=== PATIENT | female | born 1995 | race African-American/Black ===

== ENCOUNTER 2018-08-13 21:22 | Emergency (ER) | payer SELFPAY ==
[2018-08-14] MEDS ORDERED: Tetracaine 0.5% OPTH.SOL 4 ML* 1 DROP BTL ONE (01:24)
[2018-08-14] MEDS ORDERED: Fluorescein Sod TOPICAL 0.6* 0.6 MG TEST OPHTHALMIC ONE (01:26)
--- NOTE | 2018-08-14 01:29 | ED ---
Throat Pain/Nasal Congestion - HPI Summary HPI Summary: Patient is a 23 y/o F w/ c/o left eye pain onsetting today. She reports she was just lying in bed when pain onset. Eye was initially noted to be red as well. She did not notice anything in her eye but was concerned she had a "cut" on her eye. However, in the room, she states pain has subsided completely. On triage, pain is rated 3/10, nothing is noted to aggravate/alleviate Sx. Home medications and allergies are reviewed. - History of Current Complaint Chief Complaint: EDEyeProblem Time Seen by Provider: 08/14/18 01:23 Hx Obtained From: Patient Onset/Duration: Sudden Onset, Resolved Severity: Mild - 3/10 - Allergies/Home Medications Allergies/Adverse Reactions: Allergies Allergy/AdvReac Type Severity Reaction Status Date / Time thimerosal Allergy Hives Verified 08/13/18 21:37 PMH/Surg Hx/FS Hx/Imm Hx Sensory History: Denies: Hx Legally Blind, Hx Deafness Opthamlomology History: Denies: Hx Legally Blind EENT History: Denies: Hx Deafness Infectious Disease History: No Infectious Disease History: Denies: Traveled Outside the [place] in Last 30 Days - Family History Known Family History: Negative: Blood Disorder - Social History Alcohol Use: None Substance Use Type: Reports: None Review of Systems Negative: Fever - on vitals, temp is 98.4 F Positive: Other - left eye pain, redness, since resolved All Other Systems Reviewed And Are Negative: Yes Physical Exam - Summary Physical Exam Summary: VITAL SIGNS: Reviewed. GENERAL: Patient is a well-developed and nourished female who is lying comfortable in the stretcher. Patient is not in any acute respiratory distress. HEAD AND FACE: No signs of trauma. No ecchymosis, hematomas or skull depressions. No sinus tenderness. EYES: PERRLA, EOMI x 2, No injected conjunctiva, no nystagmus. EARS: Hearing grossly intact. Ear canals and tympanic membranes are within normal limits. MOUTH: Oropharynx within normal limits. NECK: Supple, trachea is midline, no adenopathy, no JVD, no carotid bruit, no c- spine tenderness, neck with full ROM. CHEST: Symmetric, no tenderness at palpation LUNGS: Clear to auscultation bilaterally. No wheezing or crackles. CVS: Regular rate and rhythm, S1 and S2 present, no murmurs or gallops appreciated. ABDOMEN: Soft, non-tender. No signs of distention. No rebound no guarding, and no masses palpated. Bowel sounds are normal. EXTREMITIES: FROM in all major joints, no edema, no cyanosis or clubbing. NEURO: Alert and oriented x 3. No acute neurological deficits. Speech is normal and follows commands. SKIN: Dry and warm Triage Information Reviewed: Yes Vital Signs On Initial Exam: Initial Vitals Temp Pulse Resp BP Pulse Ox 98.4 F 82 16 105/67 100 08/13/18 21:34 08/13/18 21:34 08/13/18 21:34 08/13/18 21:34 08/13/18 21:34 Vital Signs Reviewed: Yes Diagnostics - Vital Signs Vital Signs Temp Pulse Resp BP Pulse Ox 08/13/18 23:34 97.4 F 73 16 111/64 100 08/13/18 21:34 98.4 F 82 16 105/67 100 - Laboratory Lab Statement: Any lab studies that have been ordered have been reviewed, and results considered in the medical decision making process. EENT Course/Dx - Course Assessment/Plan: Patient is a 23 y/o F w/ c/o left eye pain onsetting today. She reports she was just lying in bed when pain onset. Eye was initially noted to be red as well. She did not notice anything in her eye but was concerned she had a "cut" on her eye. However, in the room, she states pain has subsided completely. Physical exam was normal. Therefore, patient was discharged to home and instructed to follow up with PCP in 1-2 days. Patient understands and is agreeable with this plan. Dx of left eye pain. - Diagnoses Provider Diagnoses: Left eye pain Discharge - Sign-Out/Discharge Documenting (check all that apply): Patient Departure - discharge - Discharge Plan Condition: Stable Disposition: HOME Patient Education Materials: Blurred Vision (ED) Referrals: [facility] [Outside] - 2 Days Additional Instructions: RETURN TO THE EMERGENCY DEPARTMENT FOR CHANGING OR WORSENING SYMPTOMS. FOLLOW UP WITH PRIMARY CARE PHYSICIAN IN 1-2 DAYS. - Billing Disposition and Condition Condition: STABLE Disposition: Home - Attestation Statements Document Initiated by Scribe: Yes Documenting Scribe: Marlo Thompson Provider For Whom Scribe is Documenting (Include Credential): Kevin Hale MD Scribe Attestation: I, Marlo Thompson , scribed for Kevin Hale MD on 08/14/18 at 0548. Scribe Documentation Reviewed: Yes Provider Attestation: The documentation as recorded by the scribeMarlo accurately reflects the service I personally performed and the decisions made by me, Kevin Hale MD
[2018-08-14 01:34] VITALS: BP 105/79
== END 2018-08-14 01:34 | disposition home or self-care (01) ==
LOC: ED 21:22
DX: H57.12 Ocular pain, left eye (principal); Z88.8 Allergy status to other drugs, medicaments and biological substances
CPT/HCPCS: 99281; A9270-GY